=== PATIENT | male | born 1960 | race Caucasian/White ===

== ENCOUNTER 2018-06-04 11:12 | Day surgery (SDC) | payer OTHER ==
[~2018-06-04 11:12] MED LIST: CEPH250A PO; CEPH500 PO; HYDACE5 PO; LISI20; RXCEPH500 PO
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
--- NOTE | 2018-06-04 12:55 | NUR ---
06/04/18 1255 Hina Gan UNABLE TO COMPLETE LUMBAR PUNCTURE, DID NOT OBTAIN ANY SPINAL FLUID.
--- NOTE | 2018-06-04 13:08 | NUR ---
Discharge instructions reviewed with patient. Patient verbalizes understanding. Copy given to patient to take home. PT UNDERSTANDING THAT [facility] WILL DO PROCEDURE PER DR ASHFORD. PT TO EXPECT PHONE CALL FOR DATE/TIME.
--- NOTE | 2018-06-04 13:12 | NUR ---
NEW BANDAIDE PLACED PRIOR TO PT LEAVING. NO BLEEDING. VSS. PT ABULATED WITH OWN CANE OUT OF DEPARTMENT.
== END 2018-06-04 13:15 | disposition home or self-care (01) ==
LOC: ORSCMMR 11:12 → ORD 12:00 → ORSCMMR 13:15
PROVIDERS: Psychiatry & Neurology Neurology
PROC: 00JU3ZZ Inspection of Spinal Canal, Percutaneous Approach (ICD-10-PCS; principal; 2018-06-04 12:00)
DX: M48.02 Spinal stenosis, cervical region (principal); G82.20 Paraplegia, unspecified